=== PATIENT | male | born 1945 | race Caucasian/White ===

== ENCOUNTER 2017-01-27 07:50 | Day surgery (SDC) | payer MEDICARE, OTHER ==
--- NOTE | ~2017-01-27 | EGD ---
EGD REPORT [facility] [address] [address] NAME: KEITH HARDWICK : 43 STATUS : REG [facility]#: [id number] AGE: 72 ADM/REG DATE : 01/27/17 MR#: [id number] REPORT SERV DATE: 01/27/17 DICTATED BY: FIDENCIO MÁRQUEZ DATE: 01/27/17 REPORT STATUS : Draft TRANSCRIBED BY: [facility] DATE: 01/27/17 Endoscopy Center Patient Name: Keith Hardwick Date of : 1945 Attending MD: FIDENCIO MÁRQUEZ, Procedure Date No Time: 01/27/2017 Procedure: Upper EUS Indications: Abnormal abdominal/pelvic CT scan, Acute pancreatitis Referring MD: CORNELIUS MIRZA, ALBERTA PARADA MD Medicines: Monitored Anesthesia Care Complications: No immediate complications. Estimated blood loss: None. Procedure: Pre-Anesthesia Assessment: - ASA Grade Assessment: III - A patient with severe systemic disease. After obtaining informed consent, the endoscope was passed under direct vision. Throughout the procedure, the patient's blood pressure, pulse, and oxygen saturations were monitored continuously. The Endoscope was introduced through the mouth, and advanced to the second part of duodenum. Findings: Endosonographic Finding : There was no sign of significant endosonographic abnormality in the entire pancreas. The pancreas was well visualized, no pathologic lymphadenopathy, no masses, no calcifications, the pancreatic duct was well visualized from ampulla to tail, the pancreatic duct was regular in contour. The pancreatic duct had a normal endosonographic appearance in the pancreatic head. The pancreatic duct measured up to 2.7 mm in diameter. There was no sign of significant endosonographic abnormality in the common bile duct. Extensive hyperechoic material consistent with sludge was visualized endosonographically in the gallbladder body. There was no sign of significant endosonographic abnormality in the ampulla. There was no sign of significant endosonographic abnormality in the examined duodenum. Endosonographic images of the stomach were unremarkable. There was no sign of significant endosonographic abnormality in the esophagus. Impression: - There was no sign of significant pathology in the entire pancreas. - The pancreatic duct had a normal endosonographic EGD REPORT [address] [address] NAME: KEITH HARDWICK : 43 STATUS : REG [facility] PAT#: [id number] AGE: 72 ADM/REG DATE : 01/27/17 MR#: [id number] REPORT SERV DATE: 01/27/17 DICTATED BY: FIDENCIO MÁRQUEZ DATE: 01/27/17 REPORT STATUS : Draft TRANSCRIBED BY: [employer] DATE: 01/27/17 appearance in the pancreatic head. The pancreatic duct measured up to 2.7 mm in diameter. - There was no sign of significant pathology in the common bile duct. - Hyperechoic material consistent with sludge was visualized endosonographically in the gallbladder body. - There was no sign of significant pathology in the ampulla. - There was no sign of significant pathology in the examined duodenum. - Endosonographic images of the stomach were unremarkable. - There was no sign of significant pathology in the esophagus. Recommendation: - Refer to a surgeon. - Return to previous diet. - Continue present medications. Procedure Code(s): --- Professional --- 52301, Esophagogastroduodenoscopy, flexible, transoral; with endoscopic ultrasound examination, including the esophagus, stomach, and either the duodenum or a surgically altered stomach where the jejunum is examined distal to the anastomosis Diagnosis Code(s): --- Professional --- K83.8, Other specified diseases of biliary tract R93.5, Abnormal findings on diagnostic imaging of other abdominal regions, including retroperitoneum K85.9, Acute pancreatitis, unspecified CPT copyright 2013 [employer]. All rights reserved. The codes documented in this report are preliminary and upon professional fee coder review may be revised to meet current compliance requirements. FIDENCIO MÁRQUEZ, 01/27/2017 9:50 AM Number of Addenda: 0 Note Initiated On: 01/27/2017 9:23 AM Scope Withdrawal Time 0 hours 0 minutes 0 seconds [address] [place] [address]
[~2017-01-27 07:50] MED LIST: ASABAYER PO; BETAPACE80 PO; FISH-EPA1000 MG PO; GLUCCHONDR PO; HYT5 PO; LIPITOR20 PO; MULTI-VIT HP PO; PRESERVISION A1 EAC1 PO; PRIN20 PO
== END 2017-01-27 23:59 | disposition home or self-care (01) ==
LOC: DMU 07:50
PROVIDERS: Internal Medicine Gastroenterology
PROC: 0DJ08ZZ Inspection of Upper Intestinal Tract, Via Natural or Artificial Opening Endoscopic (ICD-10-PCS; principal; 2017-01-27 10:00)
DX: K85.90 Acute pancreatitis without necrosis or infection, unspecified (principal); K83.8 Other specified diseases of biliary tract; R93.5 Abnormal findings on diagnostic imaging of other abdominal regions, including retroperitoneum; I10 Essential (primary) hypertension; I48.91 Unspecified atrial fibrillation; G47.33 Obstructive sleep apnea (adult) (pediatric); E66.01 Morbid (severe) obesity due to excess calories; Z79.899 Other long term (current) drug therapy; Z95.1 Presence of aortocoronary bypass graft; Z79.82 Long term (current) use of aspirin; Z88.0 Allergy status to penicillin

== ENCOUNTER 2017-01-29 03:56 | Inpatient (IN) | payer MEDICARE, OTHER ==
--- NOTE | ~2017-01-29 | DS ---
Discharge Summary [place] [id number] [place]. [address] NAME: KELLY SALINAS : 43 STATUS : ADM IN [facility]#: [id number] AGE: 72 ADM/REG DATE : 01/29/17 MR#: [id number] REPORT SERV DATE: 02/01/17 DICTATED BY: DOLORES HERMOSILLO DATE: 02/01/17 REPORT STATUS : Draft TRANSCRIBED BY: MODL DATE: 02/01/17 ADMISSION DATE: 01/29/2017 DISCHARGE DATE: 02/01/2017 FINAL HOSPITAL DIAGNOSES: 1. Cholecystitis. 2. Pancreatitis. 3. History of coronary artery disease status post CABG. 4. History of atrial fibrillation. 5. Hypertension. CONSULTATIONS: To Surgery, Dr. Wong. PROCEDURES: 1. Cholecystectomy. 2. CT scan of the abdomen and pelvis done on 01/29/2017 showing mild acute pancreatitis. CURRENT PHYSICAL FINDINGS AND HISTORY OF PRESENT ILLNESS: Please see initial dictated H and P by Dr. Bunn. In brief, the patient is a 72-year-old male with above medical history, who was recently seen at [facility], it was felt to need a cholecystectomy down the road, presented here with recurrent abdominal pain and pancreatitis. Vital signs at the time of admission: Blood pressure was elevated at 194/89, subsequent blood pressures have been in the 150-160 range, temp was 97.5 on admit, T-max has been 99.3. LABORATORY DATA: Initial procalcitonin was 0.07. Initial BMP was unremarkable. Triglycerides were 77. LFTs were not elevated. Initial lipase was 7640, following day it was 567 and 202 on the 2nd. TSH was 1.62. Ionized calcium was 3.75. Lactate was 1.02. Initial white count was 10.7, highest white count was 12.8 on the 1st. Most recent was today at 11.5. Urinalysis was unremarkable. HOSPITAL COURSE: The patient was admitted for pancreatitis and cholecystitis. Surgery was consulted. He was placed on Levaquin and Flagyl. He was initially held n.p.o. He was started on IV fluids. Reasonable pain and nausea medications were given and he was started on Levaquin and Flagyl. He was seen by Surgery and felt he would need to undergo cholecystectomy with intraoperative cholangiogram and this was completed on the . The only other issues during his hospital stay was hypertension. He had been told at [facility] to stop his MARISELA inhibitor, although it was not combined with thiazide diuretic as this might be a possible cause of his pancreatitis. He was started on Norvasc on postop day #1. The patient was tolerating p.o. He was having no pain. He was ambulatory and he had had a bowel movement. Pending approval from surgery, the patient will soon be discharged. DISPOSITION: He will be discharged home. FOLLOWUP: Surgical followup per Surgery. He already has a followup appointment this month with his marriage and family therapist and PCP. Discharge Summary [place] [address] [facility] [place]. [address] NAME: KELLY SALINAS : 43 STATUS : ADM IN [facility]#: [id number] AGE: 72 ADM/REG DATE : 01/29/17 MR#: [id number] REPORT SERV DATE: 02/01/17 DICTATED BY: DOLORES HERMOSILLO DATE: 02/01/17 REPORT STATUS : Draft TRANSCRIBED BY: ASHLEY DATE: 02/01/17 DISCHARGE INSTRUCTIONS: Rx is written for Norvasc 5 one per day. We will discuss with Surgery if the patient needs to go home on any oral antibiotics, otherwise, he will continue Lipitor 20, Betapace 80 q.12, Hytrin 5, aspirin 325, PreserVision capsules, multivitamin, fish oil 1000, and glucosamine chondroitin. We will defer to the patient's marriage and family therapist, whether he needs to resume his MARISELA inhibitor, I do not know his full cardiac history. He will otherwise stay on Norvasc until that time. Not certain if his MARISELA inhibitor or anything to do with his pancreatitis. BENITO/ASHLEY Dolores Hermosillo M.D. / [id number] CC: Alejandra Blanchard M.D.
--- NOTE | ~2017-01-29 | OP ---
Record Of Operation [facility] [address] [place]. [address] NAME: KELLY SALINAS : 43 STATUS : ADM IN PAT#: [id number] AGE: 72 ADM/REG DATE : 01/29/17 MR#: [id number] REPORT SERV DATE: 01/31/17 DICTATED BY: CHAZ MULLEN DATE: 01/31/17 REPORT STATUS : Draft TRANSCRIBED BY: MODL DATE: 01/31/17 DATE OF PROCEDURE: PREOPERATIVE DIAGNOSES: 1. Chronic cholecystitis with gallbladder sludge (cholelithiasis). 2. Acute biliary pancreatitis. POSTOPERATIVE DIAGNOSES: 1. Chronic cholecystitis with gallbladder sludge (cholelithiasis). 2. Acute biliary pancreatitis. PROCEDURES: 1. Laparoscopic cholecystectomy (two site). 2. Laparoscopic intraoperative cholangiogram. SURGEON: Chaz Mullen M.D. DESCRIPTION OF OPERATIVE PROCEDURE: The patient was brought to the operating suite, placed in supine position, underwent satisfactory general endotracheal anesthesia without incident. The skin of the abdomen was scrubbed, prepped, and draped in usual sterile fashion. 0.5% Marcaine with epinephrine was utilized for supplemental local anesthesia at all intended trocar sites. Initially, an infraumbilical incision was performed dissecting through the skin and subcutaneous tissue to the umbilical fascia. This was grasped with a Summer clamp and elevated, and a disposable Veress insufflation needle was inserted through the umbilical fascia into the peritoneal cavity. The intraperitoneal tip location was ascertained using the saline hanging drop method, following which CO2 was insufflated for pressures of 15 mmHg throughout the case. After adequate insufflation pressures were achieved, the Veress needle was removed, disposable bladed/shielded 11-mm trocar was inserted through the umbilical fascia into the peritoneal cavity, following which a rigid forward-viewing 10-mm laparoscope was inserted. Visualization of the intraabdominal parietes revealed no evidence of injury from the initial insufflation or puncture. A cursory examination of the pelvis was normal. Attention was then turned to the upper abdomen where an additional 5-mm trocar was placed to the right of the falciform ligament and then an additional 5-mm grasping instrument inserted through the umbilical fascia next to the umbilical trocar. The fundus and body of the gallbladder were grasped and elevated exposing the infundibular region. This was difficult due to the patient's heavy girth and also due to the heavy liver and a lot of fiber fatty tissue surrounding the gallbladder. Dissection in the triangle of Calot was successful in identifying and skeletonizing the cystic duct and the cystic duct common duct junction as well as the cystic artery. A single clip was placed on the gallbladder side of the cystic duct and then a small enterotomy was created in the cystic Record Of Operation [address] [address] NAME: KELLY SALINAS : 43 STATUS : ADM IN PAT#: [id number] AGE: 72 ADM/REG DATE : 01/29/17 MR#: [id number] REPORT SERV DATE: 01/31/17 DICTATED BY: CHAZ MULLEN DATE: 01/31/17 REPORT STATUS : Draft TRANSCRIBED BY: ASHLEY DATE: 01/31/17 duct with free spillage of bile noted. A percutaneously introduced cholangiocatheter was inserted through the upper abdominal wall under direct visualization. A saline-flushed Arrow cholangiocath was next advanced down this and inserted into the cystic duct with flushing. It was retained with a Weck polymer 5-mm clip. Sequential fluoroscopic intraoperative cholangiography was next performed revealing excellent visualization of both the intra and extrahepatic biliary ductal system. Specifically, there was no evidence of filling defects or major aberrant ductal anatomy or dilatation and there was noted to be free spillage of dye into the duodenum. The retaining clip was removed as well as the catheter. The cystic duct was controlled with three Weck polymer 5-mm clips and divided. Then, further dissection and skeletonization of the cystic artery was performed with control of this with Weck clips. The gallbladder was dissected free from the subhepatic space using spatula cautery. Endo-Retrieval pouch was introduced and the gallbladder was placed inside the pouch for retrieval. Upper abdominal trocars were removed. No muscular bleeding was noted. CO2 was allowed to egress from the peritoneal cavity and the gallbladder was retrieved through the umbilicus. It was opened, morcellated, and removed intact. The umbilicus was closed with [id number] suture of 0 Vicryl, subcutaneous tissue closed with interrupted 4-0 Vicryl running subcuticular stitch, and 4-0 Vicryl for the skin. Dermabond skin adhesive placed. The patient tolerated the procedure well, returned to PACU in stable condition. At the termination of the procedure, sponge, needle, lap, and instrument counts were correct x3. ESTIMATED BLOOD LOSS: Less than 15 mL. WR/MODL Chaz Mullen M.D. / [id number] CC: Alejandra Blanchard M.D.
--- NOTE | ~2017-01-29 | HP ---
History And Physical [place] [address] [facility] [place]. [address] NAME: KELLY SALINAS : 43 STATUS : ADM IN [facility]#: [id number] AGE: 72 ADM/REG DATE : 01/29/17 MR#: [id number] REPORT SERV DATE: 01/29/17 DICTATED BY: MICHELE LEAL DATE: 01/29/17 REPORT STATUS : Draft TRANSCRIBED BY: MODL DATE: 01/29/17 DATE OF ADMISSION: 01/29/2017 CHIEF COMPLAINT: A 72-year-old male presenting with recurrent abdominal pain. HISTORY OF PRESENT ILLNESS: The patient's history was obtained through careful interview with the patient, , and daughter, coupled with review of [facility] medical records and medical records obtained from [facility]. The patient on 01/19/2017 began to develop severe abdominal pain. He was admitted to [facility] with acute pancreatitis. He underwent studies and supportive care. He had his pain resolve considerably, but there was a report of a positive HIDA scan with a less than 5% ejection fraction on 01/19/2017. He was seen by Dr. Wogn, surgeon, and he believes he was told that eventually he would have to have his gallbladder taken out. He was able to be discharged home with improvement in his symptoms. He underwent an upper endoscopy with ultrasound of the pancreas under the care Dr. Kinsey on 01/27/2017, but this was "negative". Then, on the afternoon leading up to admission, the patient began to develop pain once again. He describes epigastric abdominal pain shooting to the back, 5/10 severity, steady discomfort with no relief. He has had a very poor appetite, but has had no nausea or vomiting. No diarrhea. He has had chills, but no fevers. No light headedness. He has had a nonproductive cough. No shortness of breath. He has pleuritic like discomfort at the base of his chest that radiates into the abdomen. REVIEW OF SYSTEMS: Otherwise, a 14-point review of systems was obtained and was negative. PAST MEDICAL HISTORY: 1. CABG, followed by Dr. Bowie. 2. Obstructive sleep apnea, on CPAP. 3. Atrial fibrillation, followed by Dr. Seals. 4. Pancreatitis. 5. Hypertension. 6. Benign prostatic hypertrophy. 7. Elevated cholesterol. 8. Macular degeneration. 9. T10 lucency of the vertebrae. History And Physical [address] [place]. [address] NAME: KELLY SALINAS : 43 STATUS : ADM IN [facility]#: [id number] AGE: 72 ADM/REG DATE : 01/29/17 MR#: [id number] REPORT SERV DATE: 01/29/17 DICTATED BY: MICHELE LEAL DATE: 01/29/17 REPORT STATUS : Draft TRANSCRIBED BY: ASHLEY DATE: 01/29/17 PAST SURGICAL HISTORY: 1. CABG in November 2015. 2. Hernia repair. ALLERGIES: TO PENICILLIN. SOCIAL HISTORY: He is to his for 49 years. They live in [place], [place], have children. He is retired from the [employer], where he worked for 36 years. No tobacco abuse history. No alcohol use. FAMILY HISTORY: Father of complications of diabetes at 86 years of age. Mother at 91 years of age. CURRENT MEDICATIONS: Unknown at this time. We have asked Pharmacy to request and compile a medication list for us. PHYSICAL EXAMINATION: VITAL SIGNS: Temperature 97.5, pulse 67, blood pressure 194/89, respiratory rate 18, and O2 saturation 97% on room air. GENERAL: A pleasant, cooperative male, describing distress secondary to abdominal pain. HEENT: Pupils equal, round, and reactive to light. No conjunctival pallor. No scleral icterus. Nares are patent. Oropharynx is clear of obstruction. Dry mucous membranes. NECK: Trachea midline. No thyromegaly. LYMPH: No cervical lymphadenopathy. No supraclavicular lymphadenopathy. RESPIRATORY: Clear to auscultation at bases. No wheezes, rales, or rhonchi. Normal respiratory effort. CARDIOVASCULAR: Regular rate and rhythm. No murmurs, rubs, or gallops. No extremity edema is appreciated. ABDOMEN: Significant epigastric abdominal pain in particular. No rebound. No guarding. Nondistended. No hepatosplenomegaly. DERMATOLOGICAL: Warm and dry extremities. No pallor. No cyanosis. PSYCHIATRIC: Normal affect. Good mood. Alert and oriented x3. LABORATORY DATA: Lipase 7640. White blood cell count 10.7, hemoglobin 14, hematocrit 39, and platelets 250. Sodium 138, potassium 3.9, chloride 104, bicarb 28, BUN 12, creatinine 1.07, and glucose 113. Urinalysis negative for infection. STUDIES: 1. CT scan of the abdomen and pelvis shows pancreatitis. 2. HIDA scan reviewed from 01/19/2017 showed low ejection fraction. 3. Upper endoscopy ultrasound under the care of Dr. Kinsey on 01/27/2017 was reviewed and History And Physical [address] [address] NAME: KELLY SALINAS : 43 STATUS : ADM IN [facility]#: [id number] AGE: 72 ADM/REG DATE : 01/29/17 MR#: [id number] REPORT SERV DATE: 01/29/17 DICTATED BY: MICHELE LEAL DATE: 01/29/17 REPORT STATUS : Draft TRANSCRIBED BY: ASHLEY DATE: 01/29/17 was "negative". ASSESSMENT AND PLAN: 1. Acute pancreatitis. Place on IV narcotic pain management. Place on IV fluids. Make n.p.o. Check fasting lipid panel. Check ionized calcium. 2. Abnormal HIDA scan. Consult Dr. Wong, surgeon. Place on IV antibiotics. 3. Paroxysmal atrial fibrillation. Check telemetry. 4. Obstructive sleep apnea. Continue continuous positive airway pressure. KPL/MODL Michele Leal M.D. / [id number] CC: Alejandra Perez M.D. Walter Rose, M.D. Fuad Kinsey MD
[2017-01-29 00:49] LABS: BASOPHILS 0.1 %; BASOPHILS ABSOLUTE 0.01 10/3/uL (0.0-0.16); EOSINOPHILS 1.6 %; EOSINOPHILS ABSOLUTE 0.17 10/3/uL (0.0-0.53); HEMATOCRIT 39.2 % (40.0-51.0); HEMOGLOBIN 13.6 g/dL (13.6-17.8); IMMATURE GRANULOCYTES 0.5 %; IMMATURE GRANULOCYTES ABSOLUTE 0.05 10/3/uL (0.0-0.11); LYMPHOCYTES 9.8 %; LYMPHOCYTES ABSOLUTE 1.05 10/3/uL (0.67-4.30); MEAN CORPUS HGB CONC 34.7 g/dL (32.0-36.0); MEAN CORPUSCULAR VOLUME 89.3 fL (80-100); MONOCYTES 6.6 %; MONOCYTES ABSOLUTE 0.71 10/3/uL (0.21-1.20); NEUTROPHILS 81.4 %; PLATELET COUNT 250 10/3/uL (150-400); RBC DISTRIBUTION WIDTH 11.9 % (12.0-16.0); RED CELL COUNT 4.39 10/6/uL (4.7-6.1); WHITE BLOOD CELLS 10.7 10/3/uL (4.5-10.5)
[2017-01-29 00:50] LABS: MANUAL DIFF NO %
[2017-01-29 01:00] LABS: ASCORBIC ACID (UR NOT ORDER) 20 (NEG); BILIRUBIN, URINE NEGATIVE (NEG); ER URINALYSIS TAT 0 Hrs 00 Mins; KETONE, URINE NEGATIVE (NEG); LEUKOCYTE ESTERASE(NOT OR NEG (NEG); NITRITE (URINE) NEG (NEG); WBC (NOT ORDERED) (RFLEX) < 1 (0-5)
[2017-01-29 01:06] LABS: ALBUMIN 3.6 G/DL (3.5-5.0); ALKALINE PHOSPHATASE 79 U/L (45-117); BUN (BLOOD UREA NITROGEN) 12 MG/DL (6-23); CALCIUM, SERUM 9.1 MG/DL (8.5-10.4); CHLORIDE, SERUM 104 MMOL/L (96-112); CO2 (CARBON DIOXIDE) 28 MMOL/L (24-34); CREATININE 1.07 MG/DL (0.70-1.30); GFR AFRICAN AMERICAN 79 ML/MIN (>=60); GFR NON AFRICAN AMERICAN 69 ML/MIN (>=60); GLOBULIN 3.6 G/DL (2.5-4.1); GLUCOSE, SERUM 113 MG/DL (60-99); POTASSIUM, SERUM 3.9 MMOL/L (3.5-5.3); SGOT(AST) 24 U/L (5-40); SGPT(ALT) 33 U/L (5-65); SODIUM, SERUM 138 MMOL/L (135-148); TOTAL BILIRUBIN 0.5 MG/DL (0-1.2); TOTAL PROTEIN 7.2 G/DL (6.0-8.5)
[2017-01-29 04:44] LABS: INTERNATIONAL NORMAL RATI 1.1 UNITS (-); PARTIAL THROMBO TIME 33.1 SEC (22.5-37.2); PROTIME (NOT ORD) 14.2 SEC (12.0-14.5)
[2017-01-29 04:50] LABS: ALBUMIN 3.6 G/DL (3.5-5.0); ALKALINE PHOSPHATASE 77 U/L (45-117); DIRECT BILIRUBIN < 0.1 MG/DL (0.0-0.4); INDIRECT BILIRUBIN(NOT ORDER) 0.5 MG/DL (0.1-0.9); SGOT(AST) 31 U/L (5-40); SGPT(ALT) 34 U/L (5-65); TOTAL BILIRUBIN 0.6 MG/DL (0-1.2); TOTAL PROTEIN 7.1 G/DL (6.0-8.5)
[2017-01-29 05:20] LABS: PROCALCITONIN 0.07 ng/mL (<0.5)
[2017-01-29 11:47] LABS: BASOPHILS 0.2 %; BASOPHILS ABSOLUTE 0.02 10/3/uL (0.0-0.16); EOSINOPHILS 2.3 %; EOSINOPHILS ABSOLUTE 0.22 10/3/uL (0.0-0.53); HEMATOCRIT 35.4 % (40.0-51.0); IMMATURE GRANULOCYTES 0.6 %; IMMATURE GRANULOCYTES ABSOLUTE 0.06 10/3/uL (0.0-0.11); LYMPHOCYTES 9.8 %; LYMPHOCYTES ABSOLUTE 0.93 10/3/uL (0.67-4.30); MANUAL DIFF NO %; MEAN CORPUS HGB CONC 33.9 g/dL (32.0-36.0); MEAN CORPUSCULAR HEMOGLOB 30.3 pg (26.0-34.0); MEAN CORPUSCULAR VOLUME 89.4 fL (80-100); MEAN PLATELET VOLUME 10.1 fL (9.2-13.0); MONOCYTES 8.1 %; MONOCYTES ABSOLUTE 0.77 10/3/uL (0.21-1.20); NEUTROPHILS ABSOLUTE 7.49 10/3/uL (2.02-8.40); PLATELET COUNT 180 10/3/uL (150-400); RBC DISTRIBUTION WIDTH 12.2 % (12.0-16.0); RED CELL COUNT 3.96 10/6/uL (4.7-6.1); WHITE BLOOD CELLS 9.5 10/3/uL (4.5-10.5)
[2017-01-29 11:55] LABS: INTERNATIONAL NORMAL RATI 1.2 UNITS (-); PARTIAL THROMBO TIME 26.9 SEC (22.5-37.2); PROTIME (NOT ORD) 15.5 SEC (12.0-14.5)
[2017-01-29 12:10] LABS: ALBUMIN 3.1 G/DL (3.5-5.0); BUN (BLOOD UREA NITROGEN) 10 MG/DL (6-23); CALCIUM, SERUM 8.5 MG/DL (8.5-10.4); CHLORIDE, SERUM 109 MMOL/L (96-112); CHOL/HDL RATIO(NOT ORDER) 2.5 (0-5); CHOLESTEROL 106 MG/DL (< 200); CREATININE 0.87 MG/DL (0.70-1.30); GFR AFRICAN AMERICAN 99 ML/MIN (>=60); GFR NON AFRICAN AMERICAN 86 ML/MIN (>=60); GLOBULIN 3.2 G/DL (2.5-4.1); GLUCOSE, SERUM 95 MG/DL (60-99); HDL CHOLESTEROL 42 MG/DL (> 39); LDL CHOLESTEROL 49 MG/DL (< 130); NON-HDL CHOLESTEROL 64 MG/DL (< 160); SGOT(AST) 16 U/L (5-40); SGPT(ALT) 27 U/L (5-65); SODIUM, SERUM 141 MMOL/L (135-148); TOTAL BILIRUBIN 0.5 MG/DL (0-1.2); TOTAL PROTEIN 6.3 G/DL (6.0-8.5); TRIGLYCERIDE 77 MG/DL (< 150)
[2017-01-29 12:14] LABS: ALKALINE PHOSPHATASE 65 U/L (45-117); CO2 (CARBON DIOXIDE) 22 MMOL/L (24-34)
[2017-01-30 04:02] LABS: BASOPHILS 0.1 %; BASOPHILS ABSOLUTE 0.01 10/3/uL (0.0-0.16); EOSINOPHILS 0.9 %; EOSINOPHILS ABSOLUTE 0.12 10/3/uL (0.0-0.53); HEMATOCRIT 36.2 % (40.0-51.0); HEMOGLOBIN 12.4 g/dL (13.6-17.8); IMMATURE GRANULOCYTES 0.3 %; IMMATURE GRANULOCYTES ABSOLUTE 0.04 10/3/uL (0.0-0.11); LYMPHOCYTES 6.7 %; LYMPHOCYTES ABSOLUTE 0.86 10/3/uL (0.67-4.30); MANUAL DIFF NO %; MEAN CORPUS HGB CONC 34.3 g/dL (32.0-36.0); MEAN CORPUSCULAR HEMOGLOB 30.6 pg (26.0-34.0); MEAN CORPUSCULAR VOLUME 89.4 fL (80-100); MEAN PLATELET VOLUME 10.3 fL (9.2-13.0); MONOCYTES 6.7 %; MONOCYTES ABSOLUTE 0.85 10/3/uL (0.21-1.20); NEUTROPHILS 85.3 %; NEUTROPHILS ABSOLUTE 10.88 10/3/uL (2.02-8.40); PLATELET COUNT 240 10/3/uL (150-400); RBC DISTRIBUTION WIDTH 12.4 % (12.0-16.0); RED CELL COUNT 4.05 10/6/uL (4.7-6.1); WHITE BLOOD CELLS 12.8 10/3/uL (4.5-10.5)
[2017-01-30 04:11] LABS: ALBUMIN 3.1 G/DL (3.5-5.0); ALKALINE PHOSPHATASE 64 U/L (45-117); BUN (BLOOD UREA NITROGEN) 12 MG/DL (6-23); CALCIUM, SERUM 8.7 MG/DL (8.5-10.4); CHLORIDE, SERUM 104 MMOL/L (96-112); CO2 (CARBON DIOXIDE) 25 MMOL/L (24-34); CREATININE 0.99 MG/DL (0.70-1.30); DIRECT BILIRUBIN 0.2 MG/DL (0.0-0.4); GFR AFRICAN AMERICAN 87 ML/MIN (>=60); GFR NON AFRICAN AMERICAN 75 ML/MIN (>=60); GLUCOSE, SERUM 86 MG/DL (60-99); INDIRECT BILIRUBIN(NOT ORDER) 0.6 MG/DL (0.1-0.9); PHOSPHORUS, SERUM 2.8 MG/DL (2.5-4.5); POTASSIUM, SERUM 4.3 MMOL/L (3.5-5.3); SGOT(AST) 15 U/L (5-40); SGPT(ALT) 25 U/L (5-65); SODIUM, SERUM 137 MMOL/L (135-148); TOTAL BILIRUBIN 0.8 MG/DL (0-1.2); TOTAL PROTEIN 6.4 G/DL (6.0-8.5)
[2017-01-31 06:32] LABS: BASOPHILS 0 %; EOSINOPHILS 2.5 %; EOSINOPHILS ABSOLUTE 0.23 10/3/uL (0.0-0.53); HEMATOCRIT 34.7 % (40.0-51.0); HEMOGLOBIN 11.8 g/dL (13.6-17.8); IMMATURE GRANULOCYTES 0.6 %; IMMATURE GRANULOCYTES ABSOLUTE 0.05 10/3/uL (0.0-0.11); LYMPHOCYTES 11.5 %; LYMPHOCYTES ABSOLUTE 1.04 10/3/uL (0.67-4.30); MEAN CORPUSCULAR HEMOGLOB 30.3 pg (26.0-34.0); MEAN CORPUSCULAR VOLUME 89.2 fL (80-100); MEAN PLATELET VOLUME 10.1 fL (9.2-13.0); MONOCYTES 6.7 %; MONOCYTES ABSOLUTE 0.61 10/3/uL (0.21-1.20); NEUTROPHILS 78.7 %; NEUTROPHILS ABSOLUTE 7.14 10/3/uL (2.02-8.40); PLATELET COUNT 222 10/3/uL (150-400); RBC DISTRIBUTION WIDTH 12.7 % (12.0-16.0); RED CELL COUNT 3.89 10/6/uL (4.7-6.1); WHITE BLOOD CELLS 9.1 10/3/uL (4.5-10.5)
[2017-01-31 06:33] LABS: MANUAL DIFF NO %
[2017-01-31 06:47] LABS: A/G RATIO 0.9 (0.7-1.9); ALBUMIN 2.9 G/DL (3.5-5.0); ALKALINE PHOSPHATASE 58 U/L (45-117); BUN (BLOOD UREA NITROGEN) 13 MG/DL (6-23); CALCIUM, SERUM 8.6 MG/DL (8.5-10.4); CHLORIDE, SERUM 108 MMOL/L (96-112); CO2 (CARBON DIOXIDE) 23 MMOL/L (24-34); CREATININE 0.95 MG/DL (0.70-1.30); GFR AFRICAN AMERICAN 92 ML/MIN (>=60); GFR NON AFRICAN AMERICAN 79 ML/MIN (>=60); GLOBULIN 3.3 G/DL (2.5-4.1); GLUCOSE, SERUM 92 MG/DL (60-99); SGOT(AST) 9 U/L (5-40); SGPT(ALT) 23 U/L (5-65); SODIUM, SERUM 140 MMOL/L (135-148); TOTAL BILIRUBIN 0.6 MG/DL (0-1.2); TOTAL PROTEIN 6.2 G/DL (6.0-8.5)
[2017-02-01 06:45] LABS: BASOPHILS 0 %; EOSINOPHILS 0 %; HEMOGLOBIN 12.2 g/dL (13.6-17.8); IMMATURE GRANULOCYTES 0.3 %; IMMATURE GRANULOCYTES ABSOLUTE 0.03 10/3/uL (0.0-0.11); LYMPHOCYTES 4.3 %; MANUAL DIFF NO %; MEAN CORPUS HGB CONC 33.9 g/dL (32.0-36.0); MEAN CORPUSCULAR HEMOGLOB 30.3 pg (26.0-34.0); MEAN CORPUSCULAR VOLUME 89.6 fL (80-100); MEAN PLATELET VOLUME 10.1 fL (9.2-13.0); MONOCYTES 3.5 %; NEUTROPHILS 91.9 %; NEUTROPHILS ABSOLUTE 10.57 10/3/uL (2.02-8.40); PLATELET COUNT 269 10/3/uL (150-400); RED CELL COUNT 4.02 10/6/uL (4.7-6.1); WHITE BLOOD CELLS 11.5 10/3/uL (4.5-10.5)
[2017-02-01 06:53] LABS: A/G RATIO 0.9 (0.7-1.9); ALBUMIN 2.9 G/DL (3.5-5.0); ALKALINE PHOSPHATASE 59 U/L (45-117); BUN (BLOOD UREA NITROGEN) 16 MG/DL (6-23); CALCIUM, SERUM 8.7 MG/DL (8.5-10.4); CHLORIDE, SERUM 105 MMOL/L (96-112); CO2 (CARBON DIOXIDE) 21 MMOL/L (24-34); GFR AFRICAN AMERICAN 86 ML/MIN (>=60); GFR NON AFRICAN AMERICAN 74 ML/MIN (>=60); GLOBULIN 3.4 G/DL (2.5-4.1); SGOT(AST) 19 U/L (5-40); SGPT(ALT) 22 U/L (5-65); SODIUM, SERUM 135 MMOL/L (135-148); TOTAL BILIRUBIN 0.5 MG/DL (0-1.2); TOTAL PROTEIN 6.3 G/DL (6.0-8.5)
[2017-02-01 06:54] LABS: GLUCOSE, SERUM 117 MG/DL (60-99)
[2017-02-01] MEDS ORDERED: NORV5 PO (14:48)
[2017-02-01] MEDS ORDERED: NORCO1 TA1 PO (14:49)
== END 2017-02-01 19:03 | disposition home or self-care (01) | DRG 417 ==
LOC: ER 03:56 → 4SO 04:29
PROVIDERS: Hospitalist; Internal Medicine; Nurse Practitioner; Specialist
DX: K80.10 Calculus of gallbladder with chronic cholecystitis without obstruction (principal); K85.10 Biliary acute pancreatitis without necrosis or infection; I48.0 Paroxysmal atrial fibrillation; I10 Essential (primary) hypertension; G47.33 Obstructive sleep apnea (adult) (pediatric); N40.0 Benign prostatic hyperplasia without lower urinary tract symptoms; H35.30 Unspecified macular degeneration; Z95.1 Presence of aortocoronary bypass graft; Z88.0 Allergy status to penicillin; I25.10 Atherosclerotic heart disease of native coronary artery without angina pectoris; E78.00 Pure hypercholesterolemia, unspecified; Z87.891 Personal history of nicotine dependence; Z79.82 Long term (current) use of aspirin; E66.9 Obesity, unspecified; Z68.33 Body mass index [BMI] 33.0-33.9, adult
CPT/HCPCS: 74176; 74300; 76000; 80053; 80061; 80069; 80076; 81001; 82330; 83605; 83690; 83735; 84145; 84443; 85025; 85610; 85730; 88304; 96374; 96375; 99285; A9270-GY; C9113; J0360; J0610; J1170; J1956; J2250; J2405; J2710; J3010; Q9967